=== PATIENT | male | born 1955 | race Caucasian/White ===

== ENCOUNTER 2016-07-04 14:26 | Emergency (ER) | payer OTHER ==
[~2016-07-04] VITALS: Ht 165.1 cm; Wt 63.6 kg
[2016-07-04 14:30] VITALS: TEMP 36.7; Ht 165.1 cm; Wt 63.6 kg
[2016-07-04] MEDS ORDERED: SODIUM CHLORIDE 0.9% 1000ML 1,000 ML IV STA (15:27)
--- NOTE | 2016-07-04 15:29 | EMERGENCY ROOM VISIT NOTE ---
History Report prepared by Angelibarie: Niurka Kong Under the Supervision of: Dr. Fortunato Kramer M.D. First contact with patient: 15:09 Chief Complaint: FLU LIKE SX Stated Complaint: FLU LIKE SYMPTONS,SORE THROAT,FEVER,HEADACHE History of Present Illness The patient is a 61 year old male who presents to the Emergency Room with complaints of persistent flu like symptoms for the past 5 days. He is accompanied by his . He complains of a headache, cough, fever, chills and body aches. His highest fever has been approximately 102 degrees. He denies any difficulty urinating, hematuria or dysuria. He denies any abdominal pain, recent syncope or recent sick contacts. He did not receive a flu shot this year. He states he has missed work for the past week because of his symptoms and his notes this is very unlike him. The patient reports he is normally very healthy. He states his only daily medications are Aspirin and a multi- vitamin. He denies any history of asthma or diabetes. 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 A total of 10 systems reviewed and were otherwise negative. Past Medical & Surgical Surgical Problems: (1) History of parotidectomy Family History Cancer Heart disease Hypertension Social History Smoking Status: Never Smoker Smokeless Tobacco Use: No Alcohol Use: occasionally Drug Use: none Marital Status: Housing Status: lives with family Occupation Status: employed Current/Historical Medications Scheduled Levofloxacin (Levaquin), 750 MG PO QD@08 Allergies Coded Allergies: No Known Allergies (Unverified , 07/04/16) Physical Exam Vital Signs Date Time Temp Pulse Resp B/P Pulse Ox O2 Delivery O2 Flow Rate FiO2 07/04/16 17:31 110 22 134/82 96 07/04/16 16:13 112 20 132/83 92 Room Air 07/04/16 14:30 36.7 72 18 138/89 94 Room Air Physical Exam GENERAL: Patient is dehydrated appearing and in minimal distress. HEENT: No acute trauma, normocephalic atraumatic, mucous membranes moist, no nasal congestion, no scleral icterus. NECK: No stridor, no adenopathy, no meningismus, trachea is midline. LUNGS: No dyspnea. Clear to auscultation and equal bilaterally. No wheeze, no rhonchi. HEART: Regular rate and rhythm. No murmurs, rubs, gallops appreciated. ABDOMEN: Soft, nontender, bowel sounds positive, no masses appreciated, no peritonitis. BACK: No midline tenderness, no CVA tenderness EXTREMITIES: Normal motion all extremities, no cyanosis, no edema. NEUROLOGIC: Alert and oriented, no acute motor or sensory deficits, no focal weakness, cranial nerves grossly intact. SKIN: No rash, no jaundice, no diaphoresis. Medical Decision & Procedures ER Provider Diagnostic Interpretation: This X-Ray was reviewed and interpreted by myself and the radiologist. CHEST ONE VIEW PORTABLE IMPRESSION: Mild multifocal left lower lung opacity which favors pneumonia. Radiographic follow-up to ensure resolution is recommended. Electronically signed by: Calvin Lawrence M.D. 07/04/2016 3:51 PM Laboratory Results 07/04/16 16:15 07/04/16 16:15 Test 07/04/16 16:15 Red Blood Count 4.49 M/uL (4.7-6.1) Mean Corpuscular Volume 91.8 fL (80-100) Mean Corpuscular Hemoglobin 32.5 pg (25-34) Mean Corpuscular Hemoglobin Concent 35.4 g/dl (32-36) RDW Standard Deviation 42.5 fL (36.4-46.3) RDW Coefficient of Variation 12.5 % (11.5-14.5) Mean Platelet Volume 10.2 fL (7.4-10.4) Anion Gap 8.0 mmol/L (3-11) Est Creatinine Clear Calc Drug Dose 90.0 ml/min Estimated GFR () 114.6 Estimated GFR (Non- 98.9 BUN/Creatinine Ratio 16.5 (10-20) Calcium Level 8.7 mg/dl (8.5-10.1) Troponin I < 0.015 ng/ml (0-0.045) Chemistry Specimen Hemolysis Laboratory results as reviewed by me. Medications Administered Medications (Trade) Dose Ordered Sig/Aristeo Route Start Time Stop Time Status Last Admin Dose Admin Sodium Chloride (Nss 1000ml) 1,000 ml @ 999 mls/hr Q1H1M STAT IV 07/04/16 15:27 07/04/16 16:27 DC 07/04/16 16:19 999 MLS/HR Levofloxacin (Levaquin Tab) 750 mg NOW ONCE PO 07/04/16 17:15 07/04/16 17:16 DC 07/04/16 17:29 750 MG Hydrocodone Bit/ Homatropine Methylb (Hycodan Elix Homepack 5/1.5MG/ 5ML) 1 homepack UD ONCE PO 07/04/16 17:15 07/04/16 17:16 DC 07/04/16 17:29 1 HOMEPACK ED Course 1520: The patient was evaluated in room C5. A complete history and physical exam was performed. 1527: NSS 1000 ml @ 999 mls/hr IV. 1710: I reevaluated the patient. He is breathing comfortably and feeling well. He will follow up with his PCP later this week. I discussed his discharge instructions and he verbalized complete understanding and agreement. 1715: Hycodan Elix 5/1.5 mg/5 ml 1 homepack PO, Levaquin 750 mg PO. Medical Decision Differential: Viral, Pharyngitis, Cellulitis, Pneumonia, Influenza, Meningitis, Sepsis, Bacteremia, UTI/Pyelonephritis, Endocrine, Toxicologic, amongst other pathologies entertained. 61 yr old male arrives with persistent cough and fevers over the last week. Exam not too remarkable but given symptoms seems reasonable doing work up. CXR with LLL infiltrate. he is smoker thus will treat with levaquin. Discussed risks of levaquin. No ACS symptoms and after 5 days symptoms normal Trop. No PE symptoms. Looks well and in no distress. Given fluids and states feeling better. Discussed with RTED if any evidence of worsening or other concerns. Stable and wishing to go home. Stressed PCP follow up mandatory in next few days. Impression Primary Impression: Left lower lobe pneumonia Scribe Attestation The scribe's documentation has been prepared under my direction and personally reviewed by me in its entirety. I confirm that the note above accurately reflects all work, treatment, procedures, and medical decision making performed by me. Departure Information Dispostion Home / Self-Care Prescriptions Levofloxacin (Levaquin) 750 Mg Tab 750 MG PO QD@08, #5 TAB Prov: Fortunato Kramer M.D. 07/04/16 Referrals Giorgio Robles M.D. (PCP) Patient Instructions ED Pneumonia, My [facility] Additional Instructions You have received a narcotic cough medication. These medications may cause drowsiness and should not be used with other sedative medications. Do not drive , drink alcohol, perform dangerous activities, nor make important decisions after taking these medications. skilled nursing use or inappropriate use may lead to addiction. Problem Qualifiers Primary Impression: Left lower lobe pneumonia Pneumonia type: due to unspecified organism Qualified Codes: J18.1 - Lobar pneumonia, unspecified organism
--- NOTE | 2016-07-04 15:53 | DIAGNOSTIC IMAGING REPORT ---
CHEST ONE VIEW PORTABLE CLINICAL HISTORY: Shortness of breath. Fever. COMPARISON STUDY: No previous studies for comparison. FINDINGS: Lung volumes are normal. There is mild multifocal airspace opacity within the left lower lung. No pneumothorax or pleural effusion is present. Cardiac size is normal. Mediastinal contours are normal. There is no evidence of pulmonary edema. IMPRESSION: Mild multifocal left lower lung opacity which favors pneumonia. Radiographic follow-up to ensure resolution is recommended. Electronically signed by: Calvin Lawrence M.D. 07/04/2016 3:51 PM Dictated Date/Time: 07/04/2016 3:50 PM
[2016-07-04 16:24] LABS: HEMATOCRIT 41.2 % (42-52); MEAN CELL VOLUME 91.8 fL (80-100); MEAN CORPUSCULAR HEMOGLOBIN 32.5 pg (25-34); MEAN CORPUSCULAR HGB CONC 35.4 g/dl (32-36); MEAN PLATELET VOLUME 10.2 fL (7.4-10.4); PLATELET COUNT 175 K/uL (130-400); RED BLOOD COUNT 4.49 M/uL (4.7-6.1); WHITE BLOOD COUNT 12.02 K/uL (4.8-10.8)
[2016-07-04 16:43] LABS: BLOOD UREA NITROGEN 12 mg/dl (7-18); BUN/CREATININE RATIO 16.5 (10-20); CALCIUM 8.7 mg/dl (8.5-10.1); CARBON DIOXIDE 29 mmol/L (21-32); CHLORIDE 96 mmol/L (98-107); CREATININE 0.74 mg/dl (0.60-1.40); GLUCOSE 95 mg/dl (70-99); POTASSIUM 4.3 mmol/L (3.5-5.1); SODIUM 133 mmol/L (136-145)
[2016-07-04] MEDS ORDERED: LEVO1TAB35 PO (17:13)
[2016-07-04] MEDS ORDERED: HYCODAN 60ML BOTTLE HOMEPACK PO ONE (17:15)
[2016-07-04] MEDS ORDERED: LEVOFLOXACIN 250 MG TAB PO ONE (17:15)
[2016-07-04 17:31] VITALS: BP 134/82; PULSE 110; O2SAT 96
== END 2016-07-04 17:32 | disposition home or self-care (01) ==
LOC: C.EDB 14:27 → C.EDC 17:32
DX: J18.1 Lobar pneumonia, unspecified organism (principal)

== ENCOUNTER → 2017-06-01 | Outpatient (CLI) | payer OTHER | END | disposition home or self-care (01) | LOC: C.LABSPEC 17:59 | PROVIDERS: ATTEND Neuromusculoskeletal Medicine & OMM | DX: R31.0 Gross hematuria (principal) ==

== ENCOUNTER → 2017-06-06 | Outpatient (CLI) | payer OTHER ==
[2017-06-06 19:05] LABS: BASO % 0.3 %; BASO ABS # 0.02 K/uL (0-0.2); EOS % 2.7 %; EOS ABS # 0.16 K/uL (0-0.5); HEMATOCRIT 43.2 % (42-52); IG# 0.01 K/uL (0.00-0.02); LYMPH % 25.4 %; LYMPH ABS # 1.53 K/uL (1.2-3.4); MEAN CELL VOLUME 92.7 fL (80-100); MEAN CORPUSCULAR HEMOGLOBIN 32.2 pg (25-34); MEAN CORPUSCULAR HGB CONC 34.7 g/dl (32-36); MEAN PLATELET VOLUME 10.4 fL (7.4-10.4); MONO % 7.1 %; MONO ABS # 0.43 K/uL (0.11-0.59); NEUT % 64.3 %; NEUT ABS # 3.88 K/uL (1.4-6.5); PLATELET COUNT 250 K/uL (130-400); RED CELL DISTRIBUTION WIDTH CV 12.5 % (11.5-14.5); WHITE BLOOD COUNT 6.03 K/uL (4.8-10.8)
[2017-06-06 19:23] LABS: ALT/SGPT 28 U/L (12-78); BLOOD UREA NITROGEN 14 mg/dl (7-18); CALCIUM 9.2 mg/dl (8.5-10.1); CARBON DIOXIDE 29 mmol/L (21-32); CREATININE 0.75 mg/dl (0.60-1.40); GLUCOSE 82 mg/dl (70-99); POTASSIUM 4.1 mmol/L (3.5-5.1); SODIUM 137 mmol/L (136-145)
[2017-06-06 19:28] LABS: ALKALINE PHOSPHATASE 49 U/L (45-117); AST/SGOT 24 U/L (15-37); TOTAL PROTEIN 7.3 gm/dl (6.4-8.2)
== END | disposition home or self-care (01) ==
LOC: C.LAB 18:20
PROVIDERS: ATTEND Neuromusculoskeletal Medicine & OMM
DX: Z00.00 Encounter for general adult medical examination without abnormal findings (principal); R31.0 Gross hematuria; R03.0 Elevated blood-pressure reading, without diagnosis of hypertension

== ENCOUNTER → 2017-06-06 | Outpatient (CLI) | payer OTHER ==
--- NOTE | 2017-06-06 13:48 | DIAGNOSTIC IMAGING REPORT ---
ULTRASOUND KIDNEYS AND BLADDER CLINICAL HISTORY: Gross hematuria. COMPARISON STUDY: No priors. TECHNIQUE: Real-time, grayscale, and color flow sonography of the kidneys and bladder is performed. Images are reviewed in the transverse and longitudinal planes. FINDINGS: Kidneys: The kidneys are normal in size and echotexture. The right kidney measures 11.7 x 4.2 x 5.0 cm and the left kidney measures 10.9 x 5.5 x 4.8 cm. There is mild fullness of the renal pelvis bilaterally without evidence of hydronephrosis. No shadowing renal calculi are identified. There is no sonographic evidence of contour deforming renal mass lesion. No perinephric fluid is identified. Bladder: The bladder is distended. Nonmobile debris is suggested posteriorly. Bilateral ureteral jets were seen. IMPRESSION: 1. The kidneys are normal in size and without hydronephrosis. 2. The bladder was distended. 3. Nonmobile debris is suggested along the posterior bladder wall. This is of indeterminant etiology and significance. No mass lesion is clearly identified; however, this would be difficult to completely exclude. Correlation with urinalysis will be required. If further assessment is desired then cystoscopy would be appropriate. Short-term follow-up ultrasound could also be considered. Electronically signed by: Tomas Law M.D. 06/06/2017 1:47 PM Dictated Date/Time: 06/06/2017 1:45 PM
== END | disposition home or self-care (01) ==
LOC: C.ULTR 12:39
PROVIDERS: ATTEND Neuromusculoskeletal Medicine & OMM
DX: N32.89 Other specified disorders of bladder (principal); R31.0 Gross hematuria

== ENCOUNTER → 2017-07-11 | Outpatient (CLI) | payer OTHER | END | disposition home or self-care (01) | LOC: C.PATHSPEC 17:32 | PROVIDERS: ATTEND Urology | DX: R31.0 Gross hematuria (principal) ==

== ENCOUNTER → 2017-08-16 | Outpatient (CLI) | payer OTHER ==
[2017-08-16 17:11] LABS: ALBUMIN 3.7 gm/dl (3.4-5.0); ALT/SGPT 25 U/L (12-78); BLOOD UREA NITROGEN 14 mg/dl (7-18); CALCIUM 8.9 mg/dl (8.5-10.1); CARBON DIOXIDE 31 mmol/L (21-32); CREATININE 0.93 mg/dl (0.60-1.40); GLUCOSE 91 mg/dl (70-99); POTASSIUM 3.8 mmol/L (3.5-5.1); SODIUM 137 mmol/L (136-145)
[2017-08-16 17:14] LABS: ALKALINE PHOSPHATASE 59 U/L (45-117); AST/SGOT 20 U/L (15-37); TOTAL PROTEIN 7.1 gm/dl (6.4-8.2)
== END | disposition home or self-care (01) ==
LOC: C.LAB 15:18
PROVIDERS: ATTEND Urology
DX: R31.0 Gross hematuria (principal)

== ENCOUNTER → 2017-08-30 | Outpatient (CLI) | payer OTHER ==
[~2017-08-30] MED LIST: OPTIRAY 320 IV PRN
--- NOTE | 2017-08-30 16:27 | DIAGNOSTIC IMAGING REPORT ---
CT ABD/PELVIS COMBO CLINICAL HISTORY: R31.0 Gross hematuria COMPARISON STUDY: Renal ultrasound performed May 2017 TECHNIQUE: Unenhanced images were obtained through the abdomen and pelvis. The patient was injected with 50 cc Optiray 320. After 5 minute delay, the patient was rescanned in a dynamic helical fashion during the additional administration of 65 cc of Optiray 320. A dose lowering technique was utilized adhering to the principles of ALARA. CT DOSE: 841.80 mGycm FINDINGS: Lower chest: The heart is normal in size and configuration, without pericardial effusion. The lung bases and pleural spaces are clear. Liver: The contrast-enhanced liver is normal in size, contour, and attenuation. There is no intrahepatic biliary ductal dilatation. The hepatic veins and portal veins are patent. Gallbladder: Unremarkable. Spleen: Normal in size and attenuation. Pancreas: Unremarkable. Adrenal glands: Unremarkable. Kidneys: No renal, ureteral, or bladder calculi are visualized. There is an 8 mm right renal cyst. No solid renal masses are visualized. No collecting system or ureteral lesions are visualized. Bowel: There are no transition zones to indicate bowel obstruction. The appendix appears normal. There is no evidence of diverticulitis. Peritoneum: There is no intraperitoneal free air or abdominal ascites. Vasculature: The abdominal aorta is normal in course and caliber. Adenopathy: There is no evidence of pathologic adenopathy. Left para aortic lesions likely represent there is sees from a circumaortic left renal vein Pelvic viscera: There is irregularity of the posterior superior bladder mucosa. Given the history of hematuria, cystoscopic evaluation should be considered in follow-up. There is mild prostamegaly Skeletal structures: No destructive osseous lesions are seen. IMPRESSION: 1. No renal, ureteral, or bladder calculi identified 2. No solid renal masses identified 3. No collecting system or ureteral lesions identified 4. Irregularity of the left posterior superior bladder mucosa. Given the history of hematuria, cystoscopic evaluation should be considered in follow-up Electronically signed by: Jacky Carson M.D. 08/30/2017 4:25 PM Dictated Date/Time: 08/30/2017 4:15 PM
== END | disposition home or self-care (01) ==
LOC: C.CTS 15:43
PROVIDERS: ATTEND Urology
DX: R31.0 Gross hematuria (principal); R93.41 Abnormal radiologic findings on diagnostic imaging of renal pelvis, ureter, or bladder

== ENCOUNTER → 2017-09-06 | Outpatient (CLI) | payer OTHER | END | disposition home or self-care (01) | LOC: C.PATHSPEC 16:56 | PROVIDERS: ATTEND Urology | DX: R31.9 Hematuria, unspecified (principal) ==

== ENCOUNTER → 2017-09-27 | Day surgery (SDC) | payer OTHER ==
[2017-09-19 14:20] VITALS: BMI 24.0
--- NOTE | 2017-09-19 14:43 | PAT Medication Instructions ---
Service Date September 19, 2017. Current Home Medication List Aspirin (Aspirin Ec), 325 MG PO BID Multivitamin (Multivitamin), 1 TAB PO QAM Medication Instructions For Your Scheduled Surgery - Hold the following medications 10 days prior to surgery per surgeon's instructions: Aspirin (Aspirin Ec), 325 MG PO BID - Hold the following medications the morning of surgery: Multivitamin (Multivitamin), 1 TAB PO QAM *nothing to eat or drink after midnight* If you have any questions please call us at [phone] or [phone] or [phone]
--- NOTE | 2017-09-19 15:55 | DIAGNOSTIC IMAGING REPORT ---
CHEST 2 VIEWS ROUTINE HISTORY: Preop. COMPARISON: Chest 07/04/2016. FINDINGS: The lungs are clear. Cardiac silhouette is normal in size. No pleural effusions. No pneumothorax. IMPRESSION: No acute process. Electronically signed by: Garrett Monroe M.D. 09/19/2017 3:53 PM Dictated Date/Time: 09/19/2017 3:49 PM
[2017-09-19 16:21] LABS: BASO % 0.4 %; BASO ABS # 0.02 K/uL (0-0.2); EOS % 1.7 %; EOS ABS # 0.09 K/uL (0-0.5); HEMATOCRIT 41.2 % (42-52); HEMOGLOBIN 14.1 g/dL (14.0-18.0); IG# 0.01 K/uL (0.00-0.02); LYMPH % 22.6 %; LYMPH ABS # 1.23 K/uL (1.2-3.4); MEAN CELL VOLUME 91.8 fL (80-100); MEAN CORPUSCULAR HEMOGLOBIN 31.4 pg (25-34); MEAN CORPUSCULAR HGB CONC 34.2 g/dl (32-36); MEAN PLATELET VOLUME 9.9 fL (7.4-10.4); MONO % 6.4 %; MONO ABS # 0.35 K/uL (0.11-0.59); NEUT % 68.7 %; NEUT ABS # 3.74 K/uL (1.4-6.5); PLATELET COUNT 228 K/uL (130-400); RED CELL DISTRIBUTION WIDTH CV 12.8 % (11.5-14.5); RED CELL DISTRIBUTION WIDTH SD 43.1 fL (36.4-46.3); WHITE BLOOD COUNT 5.44 K/uL (4.8-10.8)
[2017-09-19 16:33] LABS: CALCIUM 9.4 mg/dl (8.5-10.1); CREATININE 0.78 mg/dl (0.60-1.40); POTASSIUM 4.7 mmol/L (3.5-5.1)
[~2017-09-27] VITALS: Ht 165.1 cm; Wt 65.9 kg
[~2017-09-27] MED LIST changes: +ACET-1311 PO; +ASPI325T39 PO; +ATROPINE SULFATE 0.1 MG/ML 5ML SYR IV PRN; +BELLADONNA/OPIUM SUPP 60 MG SUPP PR ONE; +CIPR-255 PO; +CIPROFLOXACIN / D5W 400 MG IV SCH; +DEXAMETHASONE SOD INJ 4 MG/ML VIAL ONE; +EpHEDrine SULFATE INJ 50 MG/ML AMP IV PRN; +FENTANYL CITRATE INJ 50 MCG/1 ML 2 ML VIAL ONE; +HYDROmorphone INJ 0.5 MG/0.5 ML SYR IV PRN; +LACTATED RINGER'S 1000ML 1,000 ML IV SCH; +LIDOCAINE HCL 2% 2 ML VIAL (20MG/ML) ONE; +MIDAZOLAM HCL 1 MG/ML 2ML VIAL ONE; +MULT-506 PO; +ONDANSETRON INJ 2 MG/ML 2 ML VIAL IV PRN; +ONDANSETRON INJ 2 MG/ML 2 ML VIAL ONE; -OPTIRAY 320 IV PRN; +OXYC7.5T65 PO; +OXYCODONE/ACETAMINOPHEN 7.5-325 TAB PO PRN; +PHEN-876 PO; +PHENYLEPHRINE 100MCG/ML 5ML SYR IV PRN; +PROMETHAZINE HCL INJ 12.5 MG in SODIUM CHLORIDE 0.9% 50ML 50 ML IV PRN; +PROPOFOL IV EMULSION 10 MG/ML 20 ML VIAL ONE
[2017-09-27 09:10] VITALS: BP 116/78; PULSE 78; TEMP 36.9; O2SAT 98; Ht 165.1 cm; Wt 65.9 kg
--- NOTE | 2017-09-27 09:44 | History & Physical Bridge Note ---
H&P Re-Evaluation Bridge Note: I have examined the patient, reviewed the History & Physical and in the interval since the performance of the History & Physical I have noted the following changes of clinical significance: No changes noted
--- NOTE | 2017-09-27 09:52 | Discharge Instructions ---
Discharge Instructions Date of Service September 27, 2017. Admission Reason for Admission: Bladder Lesion Discharge Discharge Diagnosis / Problem: Bladder Mas Discharge Goals Goal(s): Decrease discomfort, Improve function Activity Recommendations Activity Limitations: resume your previous activity Lifting Limitations: gradually increase as tolerated Exercise/Sports Limitations: gradually increase as tolerated Shower/Bathe: no limitations . Instructions / Follow-Up Instructions / Follow-Up Nunez care instructions per nursing. Okay to shower. May have blood in urine. May have pelvic discomfort. Call if any fevers or chills. Current Hospital Diet Patient's current hospital diet: Discharge Diet Recommended Diet: Regular Diet Procedures Procedures Performed: TURBT Pending Studies Studies pending at discharge: no Medical Emergencies . Who to Call and When: Medical Emergencies: If at any time you feel your situation is an emergency, please call 911 immediately. . Non-Emergent Contact Non-Emergency issues call your: Primary Care Provider, Urologist Call Non-Emergent contact if: you have a fever, temperature is above 101, temperature is above 101.5, your pain is not controlled, your pain is worsening , your pain is unusual for you . . "Provider Documentation" section prepared by Tutu Mireles. .
--- NOTE | 2017-09-27 12:40 | [facility] Operative Report ---
Operative Report Operative Date September 27, 2017. Pre-Operative Diagnosis Bladder Mass Post-Operative Diagnosis Same, Deep tumor into perivesicular fat vs extension of tumor into bladder. Procedure(s) Performed TURBT, large. Exam under anesthesia Surgeon Chi Estimated Blood Loss Minimal Findings Abnormal mass of base of bladder within diverticulum vs invasion into bladd Specimens Tumor bladder base. Drains 18 Fr Benavidez Anesthesia Type General Complication(s) none Disposition Recovery Room / PACU Indications Large bladder mass of base of bladder. Risks and benefits discussed. Description of Procedure Patient was consented and brought back to the operating room. Patient was placed under anesthesia in the supine position and moved to the dorsal lithotomy position. Patient was prepped and draped in the regular sterile fashion. A time out was completed. A 30degree Cystoscope was placed into the bladder and the entire bladder was examined. The UO's were identified. The tumor was identified. The resection scope was placed. Bipolar resection of the lesion was taken. It appeared to be coming from a diverticulum at the base of bladder. The tumor was fully resected. The tissue was irrigated and sent for pathology. The area was assessed and the wound bed and edges were fulgurated with the loop. All bleeding was controlled. The tumor appeared to be deep in the perivesicular fat. With resection further tumor bulged into bladder. This was resected. As resection was continuing deep into muscle with some exposure of perivesicular fat. Tumor grossly involved fat and continued into deep tissues. A rectal exam was completed. The bladder was monitored during the exam. Palpation could not get to the area of tumor compared to bladder. No rectal masses or lesions within the rectum were appreciated. A mass like area was felt with deep palpation, but could not be full characterized. It did not feel to obviously be coming from the rectum or bladder. A total of approximately 7.6 cm of tumor was resected. At this point, further resection was ceased. The exposed tumor was fulgurated. The edges of resection were fulgurated. No obvious perforation was visualized. Tumor did appear to penetrate from perivesicular fat and tissue into the bladder as opposed to tumor coming from bladder into surrounding fat. Due to the presentation of tumor into deep tissues and possibly within a diverticulum, it was decided to place a benavidez catheter. The bladder was left partially full. The scope was removed. An 18 Fr Catheter was placed. The patient was cleaned, aroused from anesthesia, and transferred to the pacu in stable condition having tolerated the procedure well with no complications. I was present and participated in all aspects of the procedure. The patient will be monitored in the PACU until transferred. Records state Patient had colonoscopy in 2015. Will need General Surgery and GI assessment. Will likely need further imaging to better assess mass and source. I attest to the content of the Intraoperative Record and any orders documented therein. Any exceptions are noted below.
[2017-09-27] MEDS: FENTANYL CITRATE INJ 50 MCG/1 ML 2 ML VIAL IV PRN ×4 (13:05→13:23)
--- NOTE | 2017-09-27 13:41 | Anesthesiology Progress Note ---
Anesthesia Post Op Note Date & Time September 27, 2017 at 13:41 Vital Signs Pain Intensity: 5 Vital Signs Past 12 Hours Date Time Temp Pulse Resp B/P (MAP) Pulse Ox O2 Delivery O2 Flow Rate FiO2 09/27/17 13:35 36.4 77 16 126/89 96 Oxymask 09/27/17 13:26 77 16 131/90 96 Oxymask 09/27/17 13:15 77 16 131/80 98 Oxymask 09/27/17 13:05 70 16 127/82 100 Oxymask 10 09/27/17 12:55 75 16 128/92 100 Oxymask 10 09/27/17 12:46 36 61 16 123/86 100 Oxymask 10 09/27/17 09:10 36.9 78 18 116/78 (91) 98 Room Air Notes Mental Status: alert / awake / arousable, participated in evaluation Pt Amnestic to Procedure: Yes Nausea / Vomiting: adequately controlled Pain: adequately controlled Airway Patency, RR, SpO2: stable & adequate BP & HR: stable & adequate Hydration State: stable & adequate Anesthetic Complications: no major complications apparent
[2017-09-27 13:52] VITALS: BP 124/63; PULSE 76; TEMP 36.6; O2SAT 96
[2017-09-27 14:20] VITALS: BP 121/65; PULSE 74; TEMP 36.6; O2SAT 96
== END | disposition home or self-care (01) ==
LOC: C.ACU 08:53
PROVIDERS: ATTEND Urology
DX: C67.9 Malignant neoplasm of bladder, unspecified (principal); F17.200 Nicotine dependence, unspecified, uncomplicated; Z85.828 Personal history of other malignant neoplasm of skin; Z79.82 Long term (current) use of aspirin; Z84.0 Family history of diseases of the skin and subcutaneous tissue; Z82.49 Family history of ischemic heart disease and other diseases of the circulatory system

== ENCOUNTER 2017-09-28 20:51 | Emergency (ER) | payer OTHER ==
[~2017-09-28] VITALS: Ht 165.1 cm; Wt 68.5 kg
[~2017-09-28 20:51] MED LIST changes: -ASPI325T39 PO; -ATROPINE SULFATE 0.1 MG/ML 5ML SYR IV PRN; -BELLADONNA/OPIUM SUPP 60 MG SUPP PR ONE; -CIPROFLOXACIN / D5W 400 MG IV SCH; -DEXAMETHASONE SOD INJ 4 MG/ML VIAL ONE; -EpHEDrine SULFATE INJ 50 MG/ML AMP IV PRN; -FENTANYL CITRATE INJ 50 MCG/1 ML 2 ML VIAL ONE; -HYDROmorphone INJ 0.5 MG/0.5 ML SYR IV PRN; -LACTATED RINGER'S 1000ML 1,000 ML IV SCH; -LIDOCAINE HCL 2% 2 ML VIAL (20MG/ML) ONE; -MIDAZOLAM HCL 1 MG/ML 2ML VIAL ONE; -ONDANSETRON INJ 2 MG/ML 2 ML VIAL IV PRN; -ONDANSETRON INJ 2 MG/ML 2 ML VIAL ONE; -OXYCODONE/ACETAMINOPHEN 7.5-325 TAB PO PRN; -PHENYLEPHRINE 100MCG/ML 5ML SYR IV PRN; -PROMETHAZINE HCL INJ 12.5 MG in SODIUM CHLORIDE 0.9% 50ML 50 ML IV PRN; -PROPOFOL IV EMULSION 10 MG/ML 20 ML VIAL ONE
[2017-09-28 20:58] VITALS: TEMP 36.6; Ht 165.1 cm; Wt 68.5 kg
--- NOTE | 2017-09-28 21:22 | EMERGENCY ROOM VISIT NOTE ---
History Report prepared by Soraya: Pushpa Holden Under the Supervision of: Dr. Khoa Montes D.O. 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 He became hot, nauseous, and diaphoretic. He feels better now. The patient had a TURP yesterday with bladder tumor removal. He was discharged with a Nunez catheter. He is currently on Pyridium and antibiotics. 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 A total of 10 systems reviewed and were otherwise negative. Past Medical & Surgical Surgical Problems: (1) History of parotidectomy Family History Cancer Heart disease Hypertension Social History Smoking Status: Never Smoker Drug Use: none Marital Status: Current/Historical Medications Scheduled Ciprofloxacin Hcl (Cipro), 1 TAB PO BID Multivitamin (Multivitamin), 1 TAB PO QAM Phenazopyridine HCl (Pyridium), 200 MG PO TID Scheduled PRN Acetaminophen (Tylenol), 325 MG PO Q4 PRN for Pain or Fever Oxycodone/Acetaminophen 7.5MG/325MG (Percocet 7.5MG/325MG), 1 TAB PO Q4 PRN for Pain Allergies Coded Allergies: No Known Allergies (Unverified , 09/27/17) Physical Exam Vital Signs Date Time Temp Pulse Resp B/P (MAP) Pulse Ox O2 Delivery O2 Flow Rate FiO2 09/28/17 20:58 36.6 79 18 114/74 96 Room Air Physical Exam CONSTITUTIONAL/VITAL SIGNS: Reviewed / noted above. GENERAL: Non-toxic in appearance. INTEGUMENTARY: Warm, dry, and [place]. HEAD: Normocephalic. EYES: without scleral icterus or trauma. ENT/OROPHARYNX: clear and moist. LYMPHADENOPATHY/NECK: Is supple without lymphadenopathy or meningismus. RESPIRATORY: Lungs clear and equal. CARDIOVASCULAR: Regular rate and rhythm. GI/ABDOMEN: Soft and nontender. No organomegaly or pulsatile mass. No rebound or guarding. Normal bowel sounds. : Nunez catheter in place draining orange-neeraj colored urine. EXTREMITIES: Warm and well perfused. BACK: No CVA tenderness. NEUROLOGICAL: Intact without focal deficits. PSYCHIATRIC: normal affect. MUSCULOSKELETAL: Normally developed with good muscle tone. Medical Decision & Procedures ED Course 2111: Previous medical records were reviewed. The patient was evaluated in room B6. A complete history and physical examination was performed. I discussed the results and findings with the patient. He verbalized agreement of the treatment plan. He was discharged home. Medical Decision Differential includes bladder dysfunction, Nunez catheter malfunction, infection , trauma. The patient is a 62-year-old male status post recent TURP with a Nunez catheter in place. The patient had a sensation that the catheter was tugging and was not draining and that he had to urinate. By the time he arrived, the symptoms resolved. Bladder scan by the nurse revealed no urine in the bladder. The catheter appears to be draining fine. The patient states that the catheter did not seem to be originally training when this occurred but began draining shortly thereafter while he was in route here. His urine is orange in color. He is on Pyridium. There are no clots. The patient otherwise has no abdominal discomfort or tenderness. He is symptoms have resolved. After evaluation, he is felt to be stable for discharge. Medication Reconcilliation Current Medication List: was personally reviewed by me Blood Pressure Screening Patient's blood pressure: Normal blood pressure Blood pressure disposition: Did not require urgent referral Impression Primary Impression: Complication of catheter Scribe Attestation The scribe's documentation has been prepared under my direction and personally reviewed by me in its entirety. I confirm that the note above accurately reflects all work, treatment, procedures, and medical decision making performed by me. Departure Information Referrals Lc Gaitan D.O. (PCP) Patient Instructions ED Catheter Care Jenny Nunez [facility] Additional Instructions Follow-up with your doctor for further care and evaluation in 1-2 days or as scheduled. Return to the emergency department for worsening or new symptoms or any concerns. You have been examined and treated today on an emergency basis only. This is not a substitute for, or an effort to provide, complete comprehensive medical care. It is impossible to recognize and treat all injuries or illnesses in a single emergency department visit. It is therefore important that you follow up closely with your doctor. Call as soon as possible for an appointment.
[2017-09-28 21:45] VITALS: BP 130/76; PULSE 80; O2SAT 99
== END 2017-09-28 21:45 | disposition home or self-care (01) ==
LOC: C.EDB 20:52
DX: T83.098A Other mechanical complication of other urinary catheter, initial encounter (principal); X58.XXXA Exposure to other specified factors, initial encounter; Z79.899 Other long term (current) drug therapy

== ENCOUNTER → 2017-11-28 | Outpatient (CLI) | payer OTHER ==
[~2017-11-28] MED LIST changes: +ASPI325T39 PO; -CIPR-255 PO; +MELO7.5T5 PO; +NAPR1TAB9 PO; -OXYC7.5T65 PO; -PHEN-876 PO
[2017-11-28 11:40] LABS: BASO % 0.4 %; BASO ABS # 0.02 K/uL (0-0.2); EOS % 2.4 %; EOS ABS # 0.13 K/uL (0-0.5); HEMATOCRIT 41.7 % (42-52); HEMOGLOBIN 14.3 g/dL (14.0-18.0); IG# 0.01 K/uL (0.00-0.02); LYMPH % 21.1 %; LYMPH ABS # 1.15 K/uL (1.2-3.4); MEAN CELL VOLUME 92.9 fL (80-100); MEAN CORPUSCULAR HEMOGLOBIN 31.8 pg (25-34); MEAN CORPUSCULAR HGB CONC 34.3 g/dl (32-36); MEAN PLATELET VOLUME 10.4 fL (7.4-10.4); MONO % 5.3 %; MONO ABS # 0.29 K/uL (0.11-0.59); NEUT % 70.6 %; NEUT ABS # 3.86 K/uL (1.4-6.5); PLATELET COUNT 209 K/uL (130-400); RED CELL DISTRIBUTION WIDTH SD 44.5 fL (36.4-46.3); WHITE BLOOD COUNT 5.46 K/uL (4.8-10.8)
[2017-11-28 12:52] LABS: BLOOD UREA NITROGEN 12 mg/dl (7-18); CALCIUM 9.2 mg/dl (8.5-10.1); CARBON DIOXIDE 28 mmol/L (21-32); CREATININE 0.71 mg/dl (0.60-1.40); GLUCOSE 98 mg/dl (70-99); SODIUM 137 mmol/L (136-145)
== END | disposition home or self-care (01) ==
LOC: C.CPL 10:41
PROVIDERS: ATTEND Urology
DX: Z01.818 Encounter for other preprocedural examination (principal)

== ENCOUNTER 2017-12-08 06:57 | Inpatient (IN) | payer OTHER ==
[2017-11-24 09:04] VITALS: BMI 23.0
--- NOTE | 2017-11-28 09:33 | PAT Medication Instructions ---
Service Date Nov 28, 2017. Current Home Medication List Aspirin (Aspirin Ec), 325 MG PO QAM Meloxicam (Mobic), 15 MG PO QAM Multivitamin (Multivitamin), 1 TAB PO QAM Naproxen (Aleve), 220 MG PO QPM Medication Instructions For Your Scheduled Surgery - Check with surgeon and prescribing physician for instructions: Aspirin (Aspirin Ec), 325 MG PO QAM - Check with surgeon for instructions: Meloxicam (Mobic), 15 MG PO QAM Naproxen (Aleve), 220 MG PO QPM - Hold the following medications the morning of surgery: Multivitamin (Multivitamin), 1 TAB PO QAM If you have any questions please call us at [phone] or [phone] or [phone]
[2017-11-28 11:04] VITALS: BMI 24.0
[~2017-12-08] VITALS: Ht 165.1 cm; Wt 66.3 kg
[2017-12-08] VITALS (8 sets, daily range): BP systolic 100–146; BP diastolic 62–88; PULSE 62–85; TEMP 36.4–36.8; O2SAT 96–100; Ht 165.1 cm; Wt 66.3 kg
[~2017-12-08 06:57] MED LIST changes: -ACET-1311 PO; +CEFAZOLIN 2000MG IV PUSH 15 ML IV SCH; +LACTATED RINGER'S 1000ML 1,000 ML IV SCH
[2017-12-08] MEDS ORDERED: ACET-1311 PO (07:17)
[2017-12-08] MEDS ORDERED: DEXAMETHASONE SOD INJ 4 MG/ML VIAL ONE (07:40)
[2017-12-08] MEDS ORDERED: FENTANYL CITRATE INJ 50 MCG/1 ML 2 ML VIAL ONE (07:40)
[2017-12-08] MEDS ORDERED: GLYCOPYRROLATE INJ 0.2 MG/ML VIAL ONE (07:40)
[2017-12-08] MEDS ORDERED: LIDOCAINE HCL 2% 2 ML VIAL (20MG/ML) ONE (07:40)
[2017-12-08] MEDS ORDERED: PROPOFOL IV EMULSION 10 MG/ML 20 ML VIAL ONE (07:40)
[2017-12-08] MEDS ORDERED: MIDAZOLAM HCL 1 MG/ML 2ML VIAL ONE (07:40)
[2017-12-08] MEDS ORDERED: NEOSTIGMINE METHYLSULFATE 5 MG/5 ML SYR ONE (07:40)
[2017-12-08] MEDS ORDERED: ONDANSETRON INJ 2 MG/ML 2 ML VIAL ONE (07:40)
[2017-12-08] MEDS ORDERED: BUPIVACAINE 0.25% 30 ML VIAL ONE (08:03)
[2017-12-08] MEDS ORDERED: METHYLENE BLUE 0.5% 10 ML VIAL ONE (08:03)
[2017-12-08] MEDS ORDERED: HYDROmorphone INJ 2 MG/ML SYR/VIAL ONE (09:09)
[2017-12-08] MEDS ORDERED: PHENYLEPHRINE 100MCG/ML 5ML SYR ONE (09:09)
[2017-12-08] MEDS ORDERED: SUCCINYLCHOLINE CHLORIDE 20 MG/ML 10 ML VIAL IV ONE (09:09)
[2017-12-08] MEDS ORDERED: CISATRACURIUM BESYLATE IV SOLN 2 MG/ML 10 ML VIAL ONE (09:09)
[2017-12-08] MEDS ORDERED: FLOSEAL HEMOSTATIC MATRIX 10ML TOP ONE (12:21)
[2017-12-08] MEDS ORDERED: SURGICEL ABSORB HEMOSTAT 2IN X 14IN TOP ONE (12:22)
[2017-12-08] MEDS ORDERED: ESMOLOL HCL 10 MG/ML 10 ML VIAL ONE (12:25)
[2017-12-08] MEDS ORDERED: BELLADONNA/OPIUM SUPP 60 MG SUPP PR ONE (12:37)
--- NOTE | 2017-12-08 12:49 | [facility] Operative Report ---
Operative Report Operative Date Dec 08, 2017. Pre-Operative Diagnosis Bladder Cancer within Bladder Diverticulum Post-Operative Diagnosis Same Procedure(s) Performed Robot Assisted Laparoscopic partial cystectomy/diverticulectomy with cystoscopy and left pelvic lymph node dissection. Surgeon DO [employer] Control Specialist Surgeon(s) MD Jeri and LUKE Fung Estimated Blood Loss Minimal Findings Large posterior diverticulum with bladder mass. Specimens 1. Partial Cystectomy 2. Staple line for margins (frozen) 3. Left pelvic lymph nodes Drains 18 Fr Benavidez. 10 Fr Flat. Anesthesia Type General Complication(s) none Disposition Recovery Room / PACU Indications Large bladder tumor found to be bladder cancer contained to large posterior bladder diverticulum. Risks and benefits discussed at length. Description of Procedure The patient was brought to the operative suite and placed under general endotracheal intubation anesthesia in the supine position. The patient was transferred to the dorsal lithotomy position. At this point, the patient prepped and draped in the usual sterile fashion and a timeout was completed. Preoperative antibiotics of Ancef 2 grams had been given. ELVIS's and SCD's were placed on the patient's lower extremities. A catheter was placed using sterile technique. With the time out completed the patient was placed into Trendelenburg and the skin at the umbilicus was anesthetized. A small incision was made superior to the umbilicus. The incision was made into the skin and subcutaneous tissues. A Varess needle was selected and placed. The needle was easily moved and it was irrigated and aspirated without any issues or concerns for placement. Insufflation commenced. Once insufflated, A camera port was placed. The cavity was insufflated to 12mmHG. A laparoscopic camera was placed and the abdominal cavity inspected. No concerning features were noted. At this point, the skin was marked for port placement and 8mm working ports were placed. The skin was anesthetized down to fascia and an approx 1cm incision was made to place the 3 x 8mm ports. A 10mm and 5 mm product development assistant ports were also placed in similar fashion under direct visualization. The patient was transferred into steep Trendelenburg position and the legs lowered. The robot was positioned and docked. The camera was placed and all trocars were positioned under direct visualization. LUKE Alas was intergral in port placement, camera utilization, and docking procedure. She remained in sterile attire and then proceeded to assist the remainder of the case. Dr. Alexandr Wilcox was also integral throughout the entire procedure assisting at bedside as well as completing the cystoscopic portions of the procedure. At this point, I transitioned to the robotic console. Once activated, the sigmoid colon was mobilized superiorly and the pelvis assessed. Adhesions were freed to allow mobilization. Significant adhesions were noted from the colon, but they were easily released. The catheter which had been placed was removed at this point and a cystoscope was placed. The bladder was distended under visualization. The light from the scope was used to help better identify internally the large diverticulum. The medial umbilical ligaments were then identified and the peritoneum directly lateral on the left was followed down towards the bladder. The vas and the left ureter were also identified and followed to their course near the bladder. The peritoneum over the left side of the posterior bladder was opened. The tissues were bluntly dissected to free bladder's attachments. The diverticulum was assessed with minimal manipulation. The scope was used to better assess a complete surgical margin. The bladder was mobilized laterally on the left for full exposure. The area surrounding the diverticulum was cleaned of perivesicular tissues to better expose the bladder. The diverticulum neck was also assessed and exposed. A wire was placed in the ureter to better identify it in relation to the diverticulum. An endoGIA stapler was selected. This was advanced across the established margin of the tumor with cystoscopic monitoring to ensure complete excision of the area with good margins. The bladder was partially emptied and the stapler was engaged. The bladder was then refilled and the placement better assessed. It appeared that good surgical margin with complete excision of the diverticulum would be achieved with this placement. The stapler was fired and the dispensed. A second staple load was used to fully remove the area. The diverticulum and surrounding bladder tissues was grasped and removed and placed into an endocatch bag. No spillage of urine or tumor was noted. The bladder was emptied and then refilled with sterile water. The suture line was grasped and dissected and excised from the bladder. This was sent for frozen pathologic analysis. This was found to be clear of malignancy or other concerning features. The mucosa was then sutured with a running 2-0 Vicryl suture. A second layer closure was then completed in an imbricated fashion with another running 2-0 vicryl suture. The entire area was inspected and no major bleeding or areas of concern were noted. Finally the peritoneum was closed with a running vicryl. No areas of injury or bleeding was noted. Care was taken to examine the surrounding tissues. With inspection, no injuries or other issues were observed. A leak test was completed without any evidence of issues. The left pelvic lymph tissue was identified in relation to the iliac vessels. Distal dissection was taken to the Node of Henry. Inferiorly the obturator vessels and nerve were identified. Lymphatic tissue within the surround fat tissue was dissected. This packet of tissues were sent for pathologic analysis and lymph node assessment. Surgiseal and Hemostatic agent was placed on the exposed vessels. The entire dissection space was inspected one final time. No bleeding or injuries or areas of concern were noted. No tumor or other concerning features were noted. A 10 Fr drain was placed in the right lateral product development assistant port. A new 18 Fr benavidez was placed. At this point, the robot was undocked and moved away from the patient. The patient was taken out of Trendelenberg. The port sites were all assessed laparoscopically. The endoscopic bag was moved into the midline port. The 10mm port site was closed with the Fidencio Bacon device. The other ports were assessed and no issues observed. The umbilical incision was opened further exposing fascia which was then opened in order to removed the prostate in the bag. The specimens were removed. A running PDS suture was used to close fascia. The skin at each site was closed with a running Monocryl suture. The area was cleaned and glue placed on each incision. The patient was cleaned and bandaged. Trevon Wilcox MD and LUKE Alas were integral throughout the entire case and remained bedside and assisted for all aspects. This included port placement, bed side assisting, and closure at the end of the case. I attest to the content of the Intraoperative Record and any orders documented therein. Any exceptions are noted below.
[2017-12-08] MEDS ORDERED: ONDANSETRON INJ 2 MG/ML 2 ML VIAL IV PRN ×2 (13:00→13:15)
[2017-12-08] MEDS ORDERED: ACETAMINOPHEN 325 MG TAB PO PRN (13:00)
[2017-12-08] MEDS ORDERED: MoRPHine SULFATE 2 MG/ML CARP IV PRN (13:00)
[2017-12-08] MEDS ORDERED: FLUMAZENIL 0.1 MG/1 ML 10 ML VIAL IV PRN (13:15)
[2017-12-08] MEDS ORDERED: PROMETHAZINE HCL INJ 12.5 MG in SODIUM CHLORIDE 0.9% 50ML 50 ML IV PRN (13:15)
[2017-12-08] MEDS ORDERED: LABETALOL HCL IV 5 MG/ML 20ML IV PRN (13:15)
[2017-12-08] MEDS ORDERED: EpHEDrine SULFATE INJ 50 MG/ML AMP IV PRN (13:15)
[2017-12-08] MEDS ORDERED: NALOXONE HCL 0.4 MG/1 ML VIAL/CARP IV PRN (13:15)
[2017-12-08] MEDS ORDERED: HYDROmorphone INJ 1 MG/ML SYR IV PRN (13:15)
[2017-12-08] MEDS ORDERED: ATROPINE SULFATE 0.1 MG/ML 5ML SYR IV PRN (13:15)
[2017-12-08 13:41] LABS: BASO % 0.2 %; BASO ABS # 0.02 K/uL (0-0.2); EOS % 0.3 %; EOS ABS # 0.03 K/uL (0-0.5); HEMOGLOBIN 14.9 g/dL (14.0-18.0); IG# 0.02 K/uL (0.00-0.02); LYMPH ABS # 0.83 K/uL (1.2-3.4); MEAN CELL VOLUME 92.9 fL (80-100); MEAN CORPUSCULAR HEMOGLOBIN 32.2 pg (25-34); MEAN PLATELET VOLUME 10.1 fL (7.4-10.4); MONO % 0.8 %; MONO ABS # 0.08 K/uL (0.11-0.59); NEUT % 90.5 %; NEUT ABS # 9.37 K/uL (1.4-6.5); PLATELET COUNT 217 K/uL (130-400); RED CELL DISTRIBUTION WIDTH CV 12.9 % (11.5-14.5); RED CELL DISTRIBUTION WIDTH SD 43.9 fL (36.4-46.3); WHITE BLOOD COUNT 10.35 K/uL (4.8-10.8)
[2017-12-08 13:43] LABS: MEAN CORPUSCULAR HGB CONC 34.7 g/dl (32-36)
--- NOTE | 2017-12-08 13:53 | Anesthesiology Progress Note ---
Anesthesia Post Op Note Date & Time Dec 08, 2017 at 13:53 Vital Signs Pain Intensity: 0 Vital Signs Past 12 Hours Date Time Temp Pulse Resp B/P (MAP) Pulse Ox O2 Delivery O2 Flow Rate FiO2 12/08/17 13:40 36.0 85 14 156/83 100 Nasal Cannula 2 12/08/17 13:30 88 12 106/60 96 Nasal Cannula 2 12/08/17 13:20 97 13 159/93 97 Nasal Cannula 2 12/08/17 13:10 88 13 168/93 99 Nasal Cannula 2 12/08/17 13:03 36.0 92 16 177/110 98 Oxymask 10 12/08/17 07:18 36.8 79 18 138/82 Room Air Notes Mental Status: alert / awake / arousable, participated in evaluation Pt Amnestic to Procedure: Yes Nausea / Vomiting: adequately controlled Pain: adequately controlled Airway Patency, RR, SpO2: stable & adequate BP & HR: stable & adequate Hydration State: stable & adequate Anesthetic Complications: no major complications apparent
[2017-12-08 13:59] LABS: CREATININE 0.85 mg/dl (0.60-1.40); POTASSIUM 4.2 mmol/L (3.5-5.1)
[2017-12-08] MEDS ORDERED: LABETALOL HCL IV 5 MG/ML 20ML ONE (14:02)
[2017-12-08] MEDS: LACTATED RINGER'S 1000ML 1,000 ML IV SCH ×2 (14:54→23:05)
[2017-12-08] MEDS: CEFAZOLIN IV 1,000 MG in SYRINGE 0 ML IV SCH ×2 (17:16→23:58)
[2017-12-08] MEDS: OXYCODONE/ACETAMINOPHEN 5-325 TAB PO PRN ×2 (18:09→23:26)
[2017-12-08] MEDS ORDERED: BELLADONNA/OPIUM SUPP 60 MG SUPP PR PRN (19:00)
[2017-12-08] MEDS: HEPARIN SOD 5000 UNIT/0.5 ML CARP SQ SCH (20:52)
[2017-12-08] MEDS: DOCUSATE SODIUM 100 MG CAP PO SCH (20:54)
[2017-12-09] MEDS: KETOROLAC TROMETHAMINE 30 MG/ML VIAL IV. PRN ×2 (01:49→11:14)
[2017-12-09 04:04] VITALS: BP 102/62; PULSE 85; TEMP 36.6; O2SAT 96
[2017-12-09] MEDS: LACTATED RINGER'S 1000ML 1,000 ML IV SCH ×3 (06:05→21:58)
[2017-12-09] MEDS: OXYCODONE/ACETAMINOPHEN 5-325 TAB PO PRN ×3 (06:09→16:25)
[2017-12-09 08:05] LABS: BASO % 0.1 %; BASO ABS # 0.01 K/uL (0-0.2); EOS % 0.2 %; EOS ABS # 0.02 K/uL (0-0.5); HEMOGLOBIN 11.4 g/dL (14.0-18.0); IG# 0.02 K/uL (0.00-0.02); LYMPH % 15.4 %; LYMPH ABS # 1.29 K/uL (1.2-3.4); MEAN CELL VOLUME 93.7 fL (80-100); MEAN CORPUSCULAR HEMOGLOBIN 31.4 pg (25-34); MEAN CORPUSCULAR HGB CONC 33.5 g/dl (32-36); MEAN PLATELET VOLUME 10.3 fL (7.4-10.4); MONO % 7.3 %; MONO ABS # 0.61 K/uL (0.11-0.59); NEUT % 76.8 %; NEUT ABS # 6.43 K/uL (1.4-6.5); PLATELET COUNT 171 K/uL (130-400); RED CELL DISTRIBUTION WIDTH CV 13.1 % (11.5-14.5); RED CELL DISTRIBUTION WIDTH SD 45.2 fL (36.4-46.3); WHITE BLOOD COUNT 8.38 K/uL (4.8-10.8)
[2017-12-09 08:19] VITALS: BP 103/63; PULSE 72; TEMP 36.6; O2SAT 95
[2017-12-09 08:21] LABS: CALCIUM 7.8 mg/dl (8.5-10.1); CREATININE 0.66 mg/dl (0.60-1.40); POTASSIUM 3.8 mmol/L (3.5-5.1)
[2017-12-09] MEDS: DOCUSATE SODIUM 100 MG CAP PO SCH ×2 (09:34→20:59)
[2017-12-09] MEDS: MULTIVITAMIN TAB PO SCH (09:35)
[2017-12-09] MEDS: HEPARIN SOD 5000 UNIT/0.5 ML CARP SQ SCH ×2 (09:38→21:01)
[2017-12-09] MEDS ORDERED: CLC100 PO (12:54)
[2017-12-09] MEDS ORDERED: OXYC-57 PO (12:54)
[2017-12-09] MEDS ORDERED: DTR/5 PO (12:54)
--- NOTE | 2017-12-09 12:56 | Anesthesiology Progress Note ---
Anesthesia Post Op Note Date & Time Dec 09, 2017 at 12:56 Vital Signs Pain Intensity: 3.0 Vital Signs Past 12 Hours Date Time Temp Pulse Resp B/P (MAP) Pulse Ox O2 Delivery O2 Flow Rate FiO2 12/09/17 10:26 Room Air 12/09/17 08:19 36.6 72 18 103/63 (76) 95 Room Air 12/09/17 04:04 36.6 85 16 102/62 (75) 96 Room Air Notes Mental Status: alert / awake / arousable, participated in evaluation Pt Amnestic to Procedure: Yes Nausea / Vomiting: adequately controlled Pain: adequately controlled Airway Patency, RR, SpO2: stable & adequate BP & HR: stable & adequate Hydration State: stable & adequate Anesthetic Complications: no major complications apparent
--- NOTE | 2017-12-09 13:01 | Discharge Instructions ---
Discharge Instructions Date of Service Dec 09, 2017. Admission Reason for Admission: Malignant Tumor Of Urinary Bladder Discharge Discharge Diagnosis / Problem: Malignant tumor of urinary bladder Discharge Goals Goal(s): Improve disease control, Diagnostic testing, Prevent Disease Progression Activity Recommendations Activity Limitations: as noted below 1. Do not lift >15lbs x 6 weeks. 2. No heavy exercise x 6 weeks. You may engage in light activity such as walking and stairs as tolerated. 3. No sexual intercourse until cleared by Dr. Mireles. 4. Do not drive x [address] while taking narcotics. 5. Immediately call our office at [phone] if your catheter is removed for any reason. 6. Follow-up as scheduled. Please call our office at [phone] if you need to reschedule for any reason. 12/21/17 at 3:00pm with Dr. Mireles . . Current Hospital Diet Patient's current hospital diet: Clear Liquid Diet Discharge Diet Recommended Diet: Regular Diet Procedures Procedures Performed: Robot Assisted laproscopic cystectomy Pending Studies Studies pending at discharge: yes List of pending studies: Pathology Medical Emergencies . Who to Call and When: Medical Emergencies: If at any time you feel your situation is an emergency, please call 911 immediately. . Non-Emergent Contact Non-Emergency issues call your: Urologist Call Non-Emergent contact if: temperature is above 101, your pain is not controlled, your pain is unusual for you, your pain is concerning you, wound has increased drainage, wound has increased redness, wound has increased pain, you have any medication questions . . "Provider Documentation" section prepared by Haydee Fung. . [place] Drug Monitoring Program Search Results: patient reviewed within database, no issues identified
[2017-12-09 15:01] VITALS: BP 102/60; PULSE 69; TEMP 36.5; O2SAT 96
[2017-12-09 23:10] VITALS: BP 130/75; PULSE 80; TEMP 36.6; O2SAT 96
[2017-12-10] MEDS: OXYCODONE/ACETAMINOPHEN 5-325 TAB PO PRN ×3 (00:01→12:54)
[2017-12-10] MEDS: LACTATED RINGER'S 1000ML 1,000 ML IV SCH (05:48)
[2017-12-10 06:34] LABS: BASO % 0.2 %; BASO ABS # 0.01 K/uL (0-0.2); EOS % 2.5 %; EOS ABS # 0.12 K/uL (0-0.5); HEMATOCRIT 34.2 % (42-52); HEMOGLOBIN 11.5 g/dL (14.0-18.0); IG# 0.01 K/uL (0.00-0.02); LYMPH % 26.4 %; LYMPH ABS # 1.29 K/uL (1.2-3.4); MEAN CELL VOLUME 94.2 fL (80-100); MEAN CORPUSCULAR HEMOGLOBIN 31.7 pg (25-34); MEAN CORPUSCULAR HGB CONC 33.6 g/dl (32-36); MEAN PLATELET VOLUME 9.8 fL (7.4-10.4); MONO ABS # 0.39 K/uL (0.11-0.59); NEUT % 62.7 %; NEUT ABS # 3.07 K/uL (1.4-6.5); PLATELET COUNT 151 K/uL (130-400); RED CELL DISTRIBUTION WIDTH CV 13.1 % (11.5-14.5); RED CELL DISTRIBUTION WIDTH SD 45.3 fL (36.4-46.3); WHITE BLOOD COUNT 4.89 K/uL (4.8-10.8)
[2017-12-10 07:09] LABS: CALCIUM 8.2 mg/dl (8.5-10.1); CREATININE 0.6 mg/dl (0.60-1.40)
[2017-12-10 07:53] VITALS: BP 142/82; PULSE 78; TEMP 36.7; O2SAT 93
[2017-12-10] MEDS: MULTIVITAMIN TAB PO SCH (09:19)
[2017-12-10] MEDS: DOCUSATE SODIUM 100 MG CAP PO SCH (09:19)
[2017-12-10] MEDS: HEPARIN SOD 5000 UNIT/0.5 ML CARP SQ SCH (09:29)
[2017-12-10] MEDS ORDERED: OXYC-643 PO (12:11)
[2017-12-10] MEDS ORDERED: [UNRECOGNIZED DRUG - CODE] PO (12:14)
--- NOTE | 2017-12-10 12:16 | Urology Progress Note ---
Progress Note Date of Service Dec 10, 2017. Subjective Pt evaluation today including: conversation w/ patient, physical exam, chart review, review of studies Pain: pain improved, passing flatus Voiding: benavidez catheter in place Objective Vital Signs Date Time Temp Pulse Resp B/P (MAP) Pulse Ox O2 Delivery O2 Flow Rate FiO2 12/10/17 07:53 36.7 78 18 142/82 (102) 93 Room Air 12/10/17 07:26 Room Air 12/09/17 23:55 Room Air 12/09/17 23:10 36.6 80 16 130/75 (93) 96 Room Air 12/09/17 15:28 Room Air 12/09/17 15:01 36.5 69 16 102/60 (74) 96 Room Air Laboratory Results Last 24 Hours Test 12/10/17 06:26 White Blood Count 4.89 K/uL Red Blood Count 3.63 M/uL Hemoglobin 11.5 g/dL Hematocrit 34.2 % Mean Corpuscular Volume 94.2 fL Mean Corpuscular Hemoglobin 31.7 pg Mean Corpuscular Hemoglobin Concent 33.6 g/dl Platelet Count 151 K/uL Mean Platelet Volume 9.8 fL Neutrophils (%) (Auto) 62.7 % Lymphocytes (%) (Auto) 26.4 % Monocytes (%) (Auto) 8.0 % Eosinophils (%) (Auto) 2.5 % Basophils (%) (Auto) 0.2 % Neutrophils # (Auto) 3.07 K/uL Lymphocytes # (Auto) 1.29 K/uL Monocytes # (Auto) 0.39 K/uL Eosinophils # (Auto) 0.12 K/uL Basophils # (Auto) 0.01 K/uL RDW Standard Deviation 45.3 fL RDW Coefficient of Variation 13.1 % Immature Granulocyte % (Auto) 0.2 % Immature Granulocyte # (Auto) 0.01 K/uL Sodium Level 142 mmol/L Potassium Level 4.0 mmol/L Chloride Level 107 mmol/L Carbon Dioxide Level 30 mmol/L Anion Gap 5.0 mmol/L Blood Urea Nitrogen 6 mg/dl Creatinine 0.60 mg/dl Est Creatinine Clear Calc Drug Dose 109.6 ml/min Estimated GFR () 124.0 Estimated GFR (Non- 107.0 BUN/Creatinine Ratio 9.9 Random Glucose 89 mg/dl Calcium Level 8.2 mg/dl Assessment and Plan drain out pt discharged to home
[2017-12-10] MEDS ORDERED: CEPH500C PO (12:18)
[2017-12-10 12:38] VITALS: BP 142/82; PULSE 78; TEMP 36.7; O2SAT 93
--- NOTE | 2017-12-15 12:20 | Discharge Summary ---
Discharge Summary Date of Service Dec 15, 2017. Admission Date/Reason Dec 08, 2017 at 12:59 Malignant Tumor Of Urinary Bladder. Discharge Date/Disposition Dec 10, 2017 Home Diagnosis Principal Diagnosis: Bladder Cancer Procedure(s) Performed Robot Asst Partial Cystectomy and left lymph node sampling Medication Reconciliation See List Admission Physical Exam As per Admitting History & Physical. Hospital Course Patient was admitted and underwent the procedure. Postoperatively did well and was monitor closely. Increased activity. Added liquids to diet and slowly advanced. Monitored output and increased activity. Used IS and maintained catheter for drainage. POD 1 had improved to point that was stablized for discharge with plans for follow up, wound care, benavidez management, and medications for control of issues. Discharge Instructions Please refer to the electronic Patient Visit Report (Discharge Instructions) for additional information.
== END 2017-12-10 13:51 | disposition home or self-care (01) | DRG 670 ==
LOC: C.ACU 06:57 → C.MSW 12:59 → ENRESERV 13:49
PROVIDERS: ADMIT Urology; ATTEND Urology
PROC: 07BC4ZX Excision of Pelvis Lymphatic, Percutaneous Endoscopic Approach, Diagnostic (ICD-10-PCS; principal; 2017-12-08 08:15)
PROC: 0TBB8ZX Excision of Bladder, Via Natural or Artificial Opening Endoscopic, Diagnostic (ICD-10-PCS; principal; 2017-12-08 08:15)
PROC: 8E0W4CZ Robotic Assisted Procedure of Trunk Region, Percutaneous Endoscopic Approach (ICD-10-PCS; principal; 2017-12-08 08:15)
DX: C67.4 Malignant neoplasm of posterior wall of bladder (principal); N32.3 Diverticulum of bladder; R03.0 Elevated blood-pressure reading, without diagnosis of hypertension; Z85.828 Personal history of other malignant neoplasm of skin; Z80.42 Family history of malignant neoplasm of prostate